=== PATIENT | female | born 1995 | race Caucasian/White ===

== ENCOUNTER 2024-01-15 10:59 | Emergency (ER) | payer MEDICAID ==
[~2024-01-15] VITALS: Ht 160 cm; Wt 94.3 kg
[2024-01-15 11:05] VITALS: BP 148/94; PULSE 67; RESP 18; TEMP 98.2; O2SAT 100
[2024-01-15 11:28] VITALS: O2SAT 98
== END 2024-01-15 12:20 | disposition home or self-care (01) ==
LOC: MED 10:59
DX: S00.83XA Contusion of other part of head, initial encounter (principal); S30.1XXA Contusion of abdominal wall, initial encounter; Y04.2XXA Assault by strike against or bumped into by another person, initial encounter; Y92.89 Other specified places as the place of occurrence of the external cause; Y93.89 Activity, other specified; Y99.8 Other external cause status
CPT/HCPCS: 99281